=== PATIENT | female | born 1960 | race Caucasian/White ===

== ENCOUNTER → 2016-11-09 | Outpatient (CLI) | payer BC ==
--- NOTE | 2016-11-09 12:25 | NM ---
EXAMINATION: Nuclear medicine myocardial perfusion study with exercise stress test. HISTORY: Stress test. PROCEDURE: Patient exercised according to Jaziel protocol for 8 minutes and 15 seconds and achieved maximal hear t rate of 143 beats per minute. Adequate exercise. Following intravenous administration of 3.7 and 29.7 mCi of technetium 99m sestamibi, stress and r est SPECT images including gating imaging was performed. FINDINGS: Stress and rest myocardial SPECT images demonstrates mildly decreased uptake along the anterior wall , fixed. Review of gated images demonstrates normal wall motion, contractility and wall thickening. The left ventricular ejection fraction is 64 %. The left ventricular chamber size is normal. IMPRESSION: 1. No evidence of myocardial ischemia. 2. Normal ventricular chamber size and function with ejection fraction of 64 %.
--- NOTE | 2016-11-09 12:25 | PCM.PRNOTE ---
- Free Text/Narrative Note: Procedure: Cardiolite exercise stress test Resting blood pressure 114/76, pulse 90 Patient exercised per Jaziel protocol 8 minutes and 15 seconds and achieved a maximum heart rate of 143 beats per minute which was 88% of age-predicted maximum heart rate. Mets: 10.1 double product 41284 Resting EKG revealed normal sinus rhythm with T-wave inversion V3 through V6. With exertion, no significant ST-T changes were noted. Test stopped at target heart rate. No complaints of chest pain during exercise or recovery with an unremarkable recovery phase Impression: #1. Negative stress test for ischemic ST-T changes #2. Fair exercise tolerance #3. Cardiolite portion of test pending.
== END ==
LOC: MW.NM 06:50
PROVIDERS: ATTEND Nurse Practitioner Family
DX: R94.31 Abnormal electrocardiogram [ECG] [EKG] (principal); Z82.49 Family history of ischemic heart disease and other diseases of the circulatory system; K21.9 Gastro-esophageal reflux disease without esophagitis; F41.1 Generalized anxiety disorder
CPT/HCPCS: 78452; 93017; A9500